=== PATIENT | male | born 1930 | race Caucasian/White ===

== ENCOUNTER 2019-05-10 16:25 | Emergency (ER) | payer SELFPAY ==
[~2019-05-10] VITALS: Ht 170.2 cm; Wt 96.0 kg
[2019-05-10 16:41] VITALS: Ht 170.2 cm; Wt 96.0 kg
[2019-05-10] MEDS ORDERED: SOD CHLORIDE 0.9% 500 ML IV STA (18:54)
[2019-05-10] MEDS ORDERED: BISACODYL 10 MG SUPP PR ONE ×2 (19:00→20:08)
[2019-05-10] MEDS ORDERED: LACTULOSE 30ML CUP PO ONE (19:00)
[2019-05-10] MEDS ORDERED: DOCU-144 PO ×2 (21:35→21:37)
[2019-05-10] MEDS ORDERED: SENN-120 PO ×2 (21:35→21:37)
[2019-05-10] MEDS ORDERED: CIPR500T4 PO (22:06)
[2019-05-10] MEDS ORDERED: CIPROFLOXACIN 500 MG TAB PO ONE (22:30)
[2019-05-10 22:36] VITALS: BP 113/67; PULSE 81; RESP 26
--- NOTE | 2019-05-10 22:39 | ERD ---
ER Documentation Chief Complaint Chief Complaint pt bib family with c/o constipated for over 1 wk with weakness HPI Patient is an 88-year-old male with multiple medical problems who presents with constipation. The patient has had 6 to 7 days of constipation. The patient tried Colace. The patient has been eating well. Please note the history and physical exam is limited secondary to patient's dementia. ROS All systems reviewed and are negative except as per history of present illness. Medications Home Meds Active Scripts Ciprofloxacin Hcl* (Ciprofloxacin Hcl*) 500 Mg Tablet, 500 MG PO BID for 7 Days, TAB Prov:JAYCEE FIGUEERDO MD 05/10/19 Sennosides* (Senna Lax*) 8.6 Mg Tablet, 1 TAB PO DAILY, #30 TAB Prov:JAYCEE FIGUEREDO MD 05/10/19 Docusate Sodium* (Colace*) 100 Mg Capsule, 100 MG PO TID, #30 CAP Prov:JAYCEE FIGUEREDO MD 05/10/19 Sennosides* (Senna Lax*) 8.6 Mg Tablet, 1 TAB PO DAILY, #30 TAB Prov:JAYCEE FIGUEREDO MD 05/10/19 Docusate Sodium* (Colace*) 100 Mg Capsule, 100 MG PO TID, #30 CAP Prov:JAYCEE FIGUEREDO MD 05/10/19 Allergies Allergies: Coded Allergies: No Known Allergy (Unverified , 05/10/19) PMhx/Soc Positive for diabetes, dementia, high cholesterol, hypertension, and BPH Smoking Status: Unknown if ever smoked Physical Exam Vitals Vital Signs Date Temp Pulse Resp B/P (MAP) Pulse Ox O2 O2 Flow FiO2 Time Delivery Rate 05/10/19 81 26 113/67 95 Room Air 22:36 (82) 05/10/19 98.3 98 20 162/74 99 16:41 (103) Physical Exam Const: No acute distress Head: Atraumatic Eyes: Normal Conjunctiva ENT: Normal External Ears, Nose and Mouth. Neck: Full range of motion. No meningismus. Resp: Clear to auscultation bilaterally Cardio: Regular rate and rhythm, no murmurs Abd: Soft, non tender, non distended. Normal bowel sounds Skin: No petechiae or rashes Back: No midline or flank tenderness Ext: No cyanosis, or edema Neur: Awake and alert Psych: Normal Mood and Affect Result Diagram: 05/10/19190905/10/191909 Results 24 hrs Laboratory Tests Test 05/10/19 19:10 05/10/19 21:57 05/10/19 22:12 White Blood Count 12.9 10^3/ul Red Blood Count 3.89 10^6/ul Hemoglobin 12.1 g/dl Hematocrit 38.9 % Mean Corpuscular Volume 100.0 fl Mean Corpuscular Hemoglobin 31.1 pg Mean Corpuscular 31.1 g/dl Hemoglobin Concent Red Cell Distribution Width 15.5 % Platelet Count 218 10^3/UL Mean Platelet Volume 10.7 fl Neutrophils % 73.7 % Lymphocytes % 18.3 % Monocytes % 5.8 % Eosinophils % 0.1 % Basophils % 0.5 % Nucleated Red Blood Cells % 0.0 /100WBC Neutrophils # 9.5 10^3/ul Lymphocytes # 2.4 10^3/ul Monocytes # 0.8 10^3/ul Eosinophils # 0.1 10^3/ul Basophils # 0.1 10^3/ul Nucleated Red Blood Cells # 0.0 10^3/ul Sodium Level 147 mmol/L Potassium Level 3.5 mmol/L Chloride Level 109 mmol/L Carbon Dioxide Level 23 mmol/L Anion Gap 15 Blood Urea Nitrogen 28 mg/dl Creatinine 1.94 mg/dl Est Glomerular Filtrat mL/min Rate mL/min Glucose Level 283 mg/dl Calcium Level 9.4 mg/dl Total Bilirubin 0.6 mg/dl Direct Bilirubin 0.00 mg/dl Indirect Bilirubin 0.6 mg/dl Aspartate Amino Transf (AST/SGOT) 27 IU/L Alanine 8 IU/L Aminotransferase (ALT/SGPT) Alkaline Phosphatase 80 IU/L Total Protein 8.5 g/dl Albumin 3.8 g/dl Globulin 4.70 g/dl Albumin/Globulin Ratio 0.80 Lipase 73 U/L Urine Color JANE Urine Clarity TURBID Urine pH 5.0 Urine Specific [place] 1.025 Urine Ketones NEGATIVE mg/dL Urine Nitrite NEGATIVE mg/dL Urine Bilirubin NEGATIVE mg/dL Urine Urobilinogen 1+ mg/dL Urine Leukocyte Esterase 2+ Jordon/ul Urine Microscopic RBC 25 /HPF Urine Microscopic WBC > 182 /HPF Urine Bacteria FEW /HPF Urine Mucus MANY /HPF Urine Hemoglobin 2+ mg/dL Urine Glucose NEGATIVE mg/dL Urine Total Protein 2+ mg/dl Bedside Urine pH (LAB) 5.5 Bedside Urine Protein (LAB) 2+ Bedside Urine Glucose (UA) Negative Bedside Urine Ketones (LAB) Trace Bedside Urine Blood 2+ Bedside Urine Nitrite (LAB) Negative Bedside Urine Leukocyte Esterase 3+ (L Current Medications Medications Dose Sig/Luiza Start Time Status Last (Trade) Ordered Route PRN Stop Time Admin Dose Reason Admin Lactulose 20 gm ONCE ONCE 05/10/19 DC 05/10/19 (Enulose) PO 19:00 22:18 05/10/19 19:01 Bisacodyl 10 mg ONCE ONCE 05/10/19 DC 05/10/19 (Dulcolax VA 19:00 20:15 Supp) 05/10/19 19:01 Sodium 500 ml @ Q1H STAT 05/10/19 DC 05/10/19 Chloride 500 mls/hr IV 18:54 20:03 05/10/19 19:53 500 mg ONCE ONCE 05/10/19 DC 05/10/19 Ciprofloxacin PO 22:30 22:20 (Cipro) 05/10/19 22:31 Procedures/MDM CT abdomen pelvis read by radiology shows constipation. Patient is a 8-year-old male presents with likely acute on chronic constipation. The patient also found to have a UTI. I do not believe the patient requires admission to the hospital at this time. The patient was given lactulose by mouth and Dulcolax suppository. The patient will be given Cipro for 1 week and the first dose was given in the emergency department for UTI. I doubt sepsis. I doubt serious bacterial infection or bowel obstruction. I believe outpatient management is appropriate but the patient will need close follow-up with the primary doctor within 24 hours. Departure Diagnosis: Primary Impression: Constipation Constipation type: unspecified constipation type Qualified Codes: K59.00 - Constipation, unspecified Additional Impression: Cystitis Condition: Fair Patient Instructions: Constipation (Adult) Referrals: Your doctor Additional Instructions: Call your primary care doctor TOMORROW for an appointment during the next 1-2 days.See the doctor sooner or return here if your condition worsens before your appointment time. JAYCEE FIGUEREDO MD May 10, 2019 22:39
== END 2019-05-10 23:42 | disposition home or self-care (01) ==
LOC: E/R 16:25
DX: K59.00 Constipation, unspecified (principal); N30.90 Cystitis, unspecified without hematuria; I10 Essential (primary) hypertension; E11.9 Type 2 diabetes mellitus without complications
CPT/HCPCS: 36415; 74176; 80053; 81001; 81003; 83690; 85025; 96360; 99285; J7040; A4310